=== PATIENT | female | born 1940 | race Caucasian/White ===

== ENCOUNTER 2023-12-24 09:27 | Emergency (ER) | payer OTHER, SELFPAY ==
[2023-12-24] VITALS (24 sets, daily range): BP systolic 124–149; BP diastolic 66–88; PULSE 72–93; RESP 15–24; TEMP 36.8–37.2; O2SAT 95–97
--- NOTE | 2023-12-24 09:15 | RT.EKG_ITS ---
APPROVED REPORT Exam: Resting ECG Reason for Exam: Fall Patient Location: E HR:87 bpm ECG Measurements Heart Rate 87 AXIS VT 114 P -27 QRSd 84 QRS -2 QT 366 T 44 QTc 441 Conclusion Sinus rhythm...normal P axis, V-rate 60- 99 sinus rhythm, normal axis, normal interavls, non ischemic
--- NOTE | 2023-12-24 09:30 | DI.RAD_ITS ---
Exam(s) XR SHOULDER RT COMPLETE 2+V EXAM: XR SHOULDER RT COMPLETE 2+V CLINICAL HISTORY: Fall. TECHNIQUE: 2D digital imaging was performed of the right shoulder. Four images were obtained. AP, Grashey and Y views were obtained. COMPARISON: No exams were available for comparison FINDINGS: BONES: No acute fracture is present. No bony destructive lesion is seen. JOINTS: No dislocation present. Mild degenerative changes are seen at the acromioclavicular joint. T he glenohumeral joint is well maintained. SOFT TISSUE: Normal. IMPRESSION: No acute fracture or dislocation. DATA REPOSITORY: RADIATION DOSE DELIVERED:
--- NOTE | 2023-12-24 09:30 | DI.RAD_ITS ---
Exam(s) XR HAND RT COMPLETE EXAM: XR HAND RT COMPLETE CLINICAL HISTORY: Fall. TECHNIQUE: 2D digital imaging was performed of the right hand. Three images were obtained. AP, late ral and oblique views were obtained. COMPARISON: No exams were available for comparison FINDINGS: BONES: No acute fracture is present. No bony destructive lesion is seen. Postsurgical changes are see n in the lunate. JOINTS: No dislocation present. Degenerative changes are seen in the hand and wrist. The findings ar e most marked at the 1st CMC joint. SOFT TISSUE: Normal. IMPRESSION: No acute fracture or dislocation. DATA REPOSITORY: RADIATION DOSE DELIVERED:
--- NOTE | 2023-12-24 09:41 | ED.GENADUL_ITS ---
Discharge Plan Disposition Patient Disposition: Home Condition: Stable Discharge Details Clinical Impression: Fall, Laceration of head, complicated, Fracture of nasal bone, Diverticulitis Primary Care Provider: Shawnee Santos ED Provider: Bertha Tinajero Home Meds and New Rx's Prescriptions: New amoxicillin-pot clavulanate 875-125 mg tablet 1 tab PO BID 10 Days Qty: 20 0RF Continued acetaminophen [8 Hour Pain Reliever] 650 mg tablet extended release 650 mg PO Q8H PRN Artificial Tears(glycerin-peg) 1-0.3 % drops 1 drp ophthalmic (eye) QID PRN buspirone 10 mg tablet 10 mg PO BID docusate sodium [Colace] 100 mg capsule 100 mg PO BID bisacodyl [Gentle Laxative (bisacodyl)] 10 mg suppository 10 mg SC DAILY PRN escitalopram oxalate 10 mg tablet 10 mg PO DAILY melatonin 3 mg capsule 6 mg PO HS magnesium hydroxide [Dulcolax (magnesium hydroxide)] 400 mg/5 mL suspension 2,400 mg PO DAILY PRN polyethylene glycol 3350 [ClearLax] 17 gram powder in packet 17 g PO DAILY PRN olanzapine 15 mg tablet,disintegrating 7.5 mg PO HS olanzapine 10 mg tablet,disintegrating 10 mg PO DAILY Discharge Instructions Instructions: Diverticulitis, Laceration Repair With Stitches ED, Nose Fracture ED, Preventing Falls ED Additional Instructions: At this time no broken bones other than nasal fractures. You have a laceration which was repaired with 8 sutures in an internal suture which will dissolve on its own. Have the sutures removed in 7 days. You are given Augmentin for to prevent from a sinus infection due to the nasal fracture and diverticulitis which they saw on the CT. The Steri-Strips will start to fall off in approximately 4 to 6 days on her own. Do not blow your nose or put anything into your nose. Watch for signs of infection including increased redness, red streaks swelling drainage or fever. Please take Tylenol with food every 4-6 hours as needed for pain and swelling. You will be sore over the next 2 to 3 days. Return to the ER for any worsening headache not relieved by Tylenol ibuprofen, worsening confusion, vomiting, weakness on one side of your body, signs of i nfection or concerns. Thank you for allowing us to care for you today. Follow up with primary care provider/ENT in 3-5 days. Return to ED sooner if any worsening or concerns. Referrals: Shawnee Santos [Primary Care Provider] - 3 days Jenaro Renteria MD [ [facility] STAFF PHYSICIAN] - 1 week (nasal fracture) HPI General Mode of arrival: EMS . Date/Time Provider Initiated Documentation: 12/24/23 09:33 . Limitations to Documentation: altered mental status . Information obtained by: patient, EMS, RN notes reviewed and old records reviewed . HPI Narrative: 83-year-old female presents to the ER via EMS after he witnessed fall at [facility] and rehab, patient was found facedown when EMS arrived on scene. She does have a large avulsion to left forehead, and laceration to the bridge of her nose. Patient has a past medical history of Alzheimer's dementia, she is also complaining of right shoulder and right hand pain. She is in a c- collar upon arrival. Bleeding is controlled with dressing. Related Data Home Medications ?Medication ?Instructions ?Recorded ?Confirmed acetaminophen 650 mg 650 mg PO Q8H PRN 12/24/23 12/24/23 tablet,extended release (8 Hour Pain Reliever) amoxicillin 875 mg-potassium 1 tab PO BID 10 days #20 tabs 12/24/23 clavulanate 125 mg tablet bisacodyl 10 mg rectal suppository 10 mg SC DAILY PRN 12/24/23 12/24/23 (Gentle Laxative (bisacodyl)) buspirone 10 mg tablet 10 mg PO BID 12/24/23 12/24/23 docusate sodium 100 mg capsule 100 mg PO BID 12/24/23 12/24/23 (Colace) escitalopram oxalate 10 mg tablet 10 mg PO DAILY 12/24/23 12/24/23 magnesium hydroxide 400 mg/5 mL 2,400 mg PO DAILY PRN 12/24/23 12/24/23 oral suspension (Dulcolax (magnesium hydroxide)) melatonin 3 mg capsule 6 mg PO HS 12/24/23 12/24/23 olanzapine 10 mg disintegrating 10 mg PO DAILY 12/24/23 12/24/23 tablet olanzapine 15 mg disintegrating 7.5 mg PO HS 12/24/23 12/24/23 tablet polyethylene glycol 3350 17 gram 17 g PO DAILY PRN 12/24/23 12/24/23 oral powder packet (ClearLax) propylene glycol 1 %-glycerin 0.3 1 drp ophthalmic (eye) QID PRN 12/24/23 12/24/23 % eye drops (Artificial Tears (glycerin-peg)) Previous Rx's ?Medication ?Instructions ?Recorded amoxicillin 875 mg-potassium 1 tab PO BID 10 days #20 tabs 12/24/23 clavulanate 125 mg tablet Allergies Allergy/AdvReac Type Severity Reaction Status Date / Time No Known Allergies Allergy Unverified 12/24/23 09:32 General Stated Complaint: Fall/Non TraumaCriteria EULALIA: 3 Review of Systems All systems reviewed & are unremarkable except as noted in HPI and below Integumentary/Breasts Skin/Breast: Reports as per HPI and Reports wounds Exam Narrative Exam Narrative: General: Well Developed, Awake and at baseline conversant. Skin: Warm and Dry HEENT: Head: Large avulsion noted to her left frontal scalp, laceration noted to the bridge of her nose. Eyes: Pupils PERRLA, EOM's intact. No periorbital eccymosis or step off Ears: Canal patent. Tympanic membranes are clear . No crandall's sign, no hemptympanum. Nose/Face: Laceration across the bridge of nose, swelling, contusion noted to the upper lip. Facial bones nontender to palpation and stable with manipulation. Mouth/Throat: No intraoral trauma. Teeth and mandible are intact. Neck: no step off, no deformity to palpation of C-spine. Trachea midline. Patient presents in a c-collar. Chest: No surface trauma. Nontender without crepitus or deformity. Lungs clear to ausculatation bilaterally. Heart: RRR, no rubs, murmurs or gallop. Abdomen: No abrasions, ecchymosis, or surface trauma. Nondistended. Nontender to palpation no guarding, rebound, or rigidity. Pelvis: Nontender to palpation and stable to compression. Femoral pulses strong and equal Extremities: no surface trauma. Sensation intact. Peripheral pulses intact and equal. Neuro: Motor and sensory exam nonfocal. Reflexes are symmetric. Course Vital Signs Vital signs: Vital Signs Temperature 36.8 C 12/24/23 09:28 Pulse 90 12/24/23 09:28 Respiratory Rate 16 12/24/23 09:28 Pulse Oximetry 97 12/24/23 09:28 Temperature 36.8 C 12/24/23 09:28 Pulse 90 12/24/23 09:28 Respiratory Rate 16 12/24/23 09:28 Blood Pressure 145/87 H 12/24/23 09:36 Pulse Oximetry 97 12/24/23 09:28 Oxygen Delivery Method Room Air 12/24/23 09:28 Oxygen Flow Rate 0 12/24/23 09:28 Comment unable to get BP at this time due to pain/resistance 12/24/23 09:28 Procedures Laceration Laceration 1: Site: scalp Side (If applicable): left Size (cm): 7 Description: flap and irregular Depth: involves muscle layer Local anesthetic: Lidocaine 1%, with Epi and LET(lidocaine epinephrine tetracaine) Amount of anesthesia used (mL): 5 Pre-repair: wound explored and irrigated extensively Skin layer closed with: nylon and vicryl (1 tied vessel off) Size (cm): 4-0 Number of sutures: 8 Technique: simple, interrupted Subcutaneous layer closed with: vicryl (Vessel tied off) Medical Decision Making 83-year-old female presents to the ER via EMS after he witnessed fall at [facility] and rehab, patient was found facedown when EMS arrived on scene. She does have a large avulsion to left forehead, and laceration to the bridge of her nose. Patient has a past medical history of Alzheimer's dementia, she is also complaining of right shoulder and right hand pain. She is in a c- collar upon arrival. Bleeding is controlled with dressing. Differential diagnose includes not limited to CVA, intracranial hemorrhage, C- spine fracture, internal bleeding or other traumatic injury. CT head C-spine facial without contrast ordered, lab work. Topical lidocaine epinephrine tetracaine, No evidence of acute fracture noted to patient's right shoulder or right hand. She does have some degenerative changes and internal fixation device on her lunate on her hand. CT chest abdomen pelvis shows evidence of acute diverticulitis and a 2.2 cm masslike opacity in the rectosigmoid which may represent malignancy versus inflamed diverticulum. Will relay this to the health and rehab, no lab evidence of infectious etiology, patient has no complaints of abdominal pain. CT head C-spine within normal limits no acute fracture. C-collar removed. Laceration anesthetized with 2% lidocaine with epi patient tolerated well. Anesthesia achieved. Cleaned with chlorhexidine scrub. And saline irrigation. Laceration repair to the left frontal scalp with 4.0 Ethilon sutures #8, there was a bleeding vessel which was tied off with Vicryl internally. Bleeding controlled. Laceration to the bridge of nose was closed with tissue adhesive and 4 Steri- Strips. Bleeding controlled at this time. Will have sutures removed in 7 days return to health and rehab via EMS. Given Augmentin to cover for prevention for sinus infection open nasal fracture and diverticulitis. This text was generated using [employer] system, please disregard any oddities of phrase or misspellings. Medical Records Medical records reviewed: Yes I reviewed the patient's medical records. Imaging Data Radiologic Study: Imaging: X-Ray Radiologist's impression: TECHNIQUE: Imaging protocol: Radiologic exam of the right hand. Views: 3 or more views. COMPARISON: No relevant prior studies available. FINDINGS: Bones/joints: Joint space narrowing in the DIP joints and PIP joints of the fingers consistent with degenerative changes. Degenerative changes in the thumb carpometacarpal joint and between the scaphoid and trapezium and in the radiocarpal joint. Internal fixation device in the lunate. Degenerative changes in the carpal bones. There is no evidence of acute fracture.There is no evidence of malalignment or dislocation. Soft tissues: Normal. IMPRESSION: There is no evidence of acute fracture.There is no evidence of malalignment or dislocation. Thank you for allowing us to participate in the care of your patient. Dictated and Authenticated by: Aziza Hardwick MD Lab Data Lab results reviewed: Yes I reviewed the patient's lab results. Labs: Laboratory Tests Range/Units 12/24/23 09:40 WBC (4.4-10.8) 10^3/uL 10.67 RBC (3.93-5.22) 10^6/uL 4.91 Hgb (11.2-15.7) g/dL 14.5 Hct (36.0-46.0) % 44.9 MCV (80-95) fL 91 MCH (27.0-33.0) pg 29.5 MCHC (32.0-36.0) % 32.3 RDW (11.7-14.6) % 13.4 Plt Count (130-400) 10^3/uL 272 MPV (8.0-11.0) fL 9.9 Immature Gran % % 0.5 Neutrophils % % 58.4 Lymphocytes % % 24.4 Monocytes % % 14.1 Eosinophils % % 1.9 Basophils % % 0.7 Nucleated RBC % (0.0-0.3) % 0.0 Absolute Neutrophils (1.2-6.7) 10^3/uL 6.25 Absolute Lymphocytes (1.2-3.4) 10^3/uL 2.60 Absolute Monocytes (0.1-0.8) 10^3/uL 1.50 H Absolute Eosinophils (0.0-0.7) 10^3/uL 0.20 Absolute Basophils (0.0-0.2) 10^3/uL 0.07 PT (9.1-11.1) sec 10.9 INR (0.9-1.1) 1.1 Sodium (136-145) mmol/L 143 Potassium (3.5-5.1) mmol/L 3.9 Chloride (98-107) mmol/L 105 Carbon Dioxide (21.0-32.0) mmol/L 26.7 Anion Gap (3-11) mmol/L 11.3 H BUN (7-18) mg/dL 19 H Creatinine (0.55-1.02) mg/dL 1.1 H Est GFR (CKD-EPI 2020) (mL/min/1.73m2) 50.48 Glucose (74-106) mg/dL 119 H Calcium (8.5-10.1) mg/dL 9.6 Magnesium (1.8-2.4) mg/dL 2.2 Total Bilirubin (0.2-1.0) mg/dL 0.62 AST (15-37) U/L 13 L ALT (14-59) U/L 14 Alkaline Phosphatase (46-116) U/L 145 H Troponin I High Sens (4-51) ng/L 4 Total Protein (6.4-8.2) g/dL 7.7 Albumin (3.4-5.0) g/dL 3.3 L Quality:SDOH Health Related Social Needs: No Data to Display PFSH All Active Problems (Updated 12/24/23 @ 13:07 by Bertha Tinajero NP) Diverticulitis (Chronic) Fracture of nasal bone (Acute) Laceration of head, complicated (Acute) Fall (Acute) Social History Smoking/Tobacco Use Status: Never Smoking risk assessment performed?: Yes Alcohol Intake: never Substance use type: does not use Housing: [facility]
[2023-12-24 09:50] LABS: Abs Immature Grans 0.05 10^3/uL (0.0-0.06); Absolute Basophil Count 0.07 10^3/uL (0.0-0.2); Absolute Neutrophil Count 6.25 10^3/uL (1.2-6.7); Basophils % 0.7 %; Eosinophils % 1.9 %; HCT 44.9 % (36.0-46.0); HGB 14.5 g/dL (11.2-15.7); Immature Grans % 0.5 %; Lymphocytes % 24.4 %; MCH 29.5 pg (27.0-33.0); MCHC 32.3 % (32.0-36.0); MCV 91 fL (80-95); MPV 9.9 fL (8.0-11.0); Monocytes % 14.1 %; Neutrophils % 58.4 %; Platelet Count 272 10^3/uL (130-400); RBC 4.91 10^6/uL (3.93-5.22); RDW 13.4 % (11.7-14.6); RDW-SD 45.5 fL; WBC 10.67 10^3/uL (4.4-10.8)
[2023-12-24] MEDS: Lidocaine/Epinephri/Tetracaine Topical Gel 3 ML TP (09:53)
[2023-12-24 09:59] LABS: INR 1.1 (0.9-1.1); Prothrombin Time 10.9 sec (9.1-11.1)
[2023-12-24 10:07] LABS: ALT 14 U/L (14-59); AST 13 U/L (15-37); Albumin 3.3 g/dL (3.4-5.0); Alkaline Phosphatase 145 U/L (46-116); Anion Gap 11.3 mmol/L (3-11); BUN 19 mg/dL (7-18); Bilirubin, Total 0.62 mg/dL (0.2-1.0); CO2 26.7 mmol/L (21.0-32.0); CREATININE 1.1 mg/dL (0.55-1.02); Calcium 9.6 mg/dL (8.5-10.1); Chloride 105 mmol/L (98-107); Estimated GFR 50.48 (mL/min/1.73m2); Glucose 119 mg/dL (74-106); Magnesium 2.2 mg/dL (1.8-2.4); Potassium 3.9 mmol/L (3.5-5.1); Sodium 143 mmol/L (136-145); Total Protein 7.7 g/dL (6.4-8.2); Troponin I 4 ng/L (4-51)
[2023-12-24] MEDS: Omnipaque 350 MG/ML 100 ML BTL IJ (10:36)
[2023-12-24] MEDS: Normal Saline - Diluent 50 ML VIAL IJ (10:36)
--- NOTE | 2023-12-24 11:23 | DI.CT_ITS ---
Exam(s) CT HEAD CERV SPINE FACIAL WO EXAM: CT HEAD CERV SPINE FACIAL WO CLINICAL HISTORY: Fall. TECHNIQUE: Imaging Protocol: Axial computed tomography images with coronal and sagittal reformatted images were created and reviewed COMPARISON: No exams were available for comparison FINDINGS: CT Head: Ventricles and Extra axial spaces: Normal in size and morphology for the patient's age. Hemorrhage: None. Cerebral parenchyma: Areas of decreased attenuation in the white matter consistent with chronic micro vascular ischemic disease. Midline shift: None. Brainstem/Cerebellum: Normal. Calvarium: Normal. Visualized Paranasal sinuses/Mastoids: No fluid levels are seen. Soft Tissues: There is a laceration in the left supraorbital soft tissues. CT Face: Facial Bones: Minimally displaced nasal bone fractures. Sinuses and Mastoids: No fluid levels are seen. Globes, extraocular muscles, optic nerves and retrobulbar fat: Normal. Upper aerodigestive tract: Normal. Mandible and bilateral temporomandibular joints: Normal. Soft tissues: There is a 1.2 cm skin lesion lateral to the right orbit (series 13 image 132). It ksenia ears superficial. The underlying musculature is unremarkable. No underlying osseous lesion is seen. CT Cervical Spine: Bones: No acute fracture or subluxation. Age-appropriate degenerative changes are present. There is mild straightening of the normal cervical lordosis. Soft Tissues: Unremarkable. Lung Apices: Clear. IMPRESSION: 1. No acute intracranial process. 2. No acute fracture or subluxation in the cervical spine. 3. Mildly displaced comminuted nasal bone fractures. 4. 1.2 cm skin lesion on the right as described above (series 13, image 132). Please correlate with physical exam and follow-up accordingly. RADIATION DOSE DELIVERED: !Error Total DLP DATA REPOSITORY: All CT scans at this facility are submitted to the National Radiology Data Registry (NRDR) Dose Index Registry (DIR) with the [employer] (A[employer]). RADIATION OPTIMIZATION: All CT scans at this facility use at least one of these dose optimization te chniques: automated exposure control; mA and/or kV adjustment per patient size (includes targeted exa ms where dose is matched to clinical indication); or iterative reconstruction.
--- NOTE | 2023-12-24 11:23 | DI.CT_ITS ---
Exam(s) CT CHEST/ABD/PEL W CT THORACIC LUMBAR SPINE REC EXAM: CT CHEST/ABD/PEL W and CT thoracic and lumbar spine recons CLINICAL HISTORY: Fall TECHNIQUE: Imaging Protocol: Axial computed tomography images with coronal and sagittal reformatted images were created and reviewed CONTRAST MATERIAL: Intravenous: Omnipaque 350 contrast volume:100 mL Oral: No COMPARISON: CT CT THORACIC LUMBAR SPINE REC from 12/24/2023 FINDINGS: The examination is limited due to patient motion artifact. CHEST: Tracheobronchial tree: Patent where visualized. Pulmonary parenchyma: Atelectatic changes are seen in the lung bases. [id number]-[id number] emphysematous changes are present in the lungs. Visualized thyroid gland: Unremarkable. Mediastinum and Ailyn: No dominant adenopathy or fluid collection. The esophagus is unremarkable. Pleura: No effusion or pneumothorax. Heart: Mild cardiomegaly. Coronary artery calcifications are present. No pericardial effusion. Pulmonary arteries: Due to the timing of the bolus, the pulmonary arteries are suboptimally opacified for evaluation of pulmonary emboli. No large central pulmonary embolus is present. Aorta: Thoracic aorta non-dilated. Atherosclerotic calcification is present. There is no evidence of dissection. Lymph nodes: Within normal limits. Soft tissues: Unremarkable. Bones:Within normal limits for the patient's age. CT recons of the thoracic spine: Age-appropriate degenerative changes are present. There is a right convex scoliosis of the thoracic spine. There are no acute fractures or subluxations. ABDOMEN: Liver: Normal density. No measurable mass. Portal, Superior Mesenteric, and Splenic Veins: Unremarkable. Gallbladder and Biliary Tract: The patient is status post cholecystectomy. No significant biliary du ctal dilatation is present. Pancreas: Normal density, no abnormal calcifications or inflammatory process. Spleen: Normal. Adrenals: There are bilateral hypodense adrenal nodules. The right adrenal nodule measures 1.1 cm. The left adrenal nodule also measures 1.1 cm. Kidneys: Normal size, contour and axis. No radiodense stones or obstructive uropathy. There is a simp le left renal cyst. No follow-up is recommended. Abdominal Aorta: Abdominal portion non-dilated. Atherosclerotic calcification is present. No evidenc e of dissection. Bowel: There is diverticulosis of the colon. There is focal bowel wall thickening seen in the centra l sigmoid colon (series 6, image 99). Mild stranding around the sigmoid colon. While acute divertic ulitis should be considered, as sigmoid mass cannot be excluded. There is no evidence of bowel obstr uction. No other wall thickening is seen. There is no evidence of appendicitis. The stomach is inc ompletely distended limiting evaluation. Peritoneal Cavity: No ascites, collection or mesenteric inflammatory response. No free air. Lymph Nodes: Within normal limits. Bones: Within normal limits for the patient's age. Soft Tissues: Unremarkable. CT lumbar spine recons: Age-appropriate degenerative changes are present. No acute fracture or sublu xation is present. PELVIS: Bladder: Symmetric distention, no gross wall thickening. Reproductive Organs: The uterus is absent. Lymph Nodes: Within normal limits. Bones: Within normal limits. IMPRESSION: 1. No acute pulmonary process. 2. No acute fracture or subluxation is seen in the thoracic or lumbar spine. 3. No acute abdominal or pelvic organ injury. 4. There is diverticulosis seen in the colon. In the mid sigmoid colon there is focal bowel wall thi ckening. Mild stranding is seen in the soft tissues. This may represent an acute diverticulitis, th ere is a masslike quality of this area in the mid sigmoid colon and a neoplasm should be considered. Follow-up with barium enema and/or colonoscopy is recommended. Unexpected findings RADIATION DOSE DELIVERED: 720.55mGy.cm Total DLP DATA REPOSITORY: All CT scans at this facility are submitted to the National Radiology Data Registry (NRDR) Dose Index Registry (DIR) with the [employer] (ACR). RADIATION OPTIMIZATION: All CT scans at this facility use at least one of these dose optimization te chniques: automated exposure control; mA and/or kV adjustment per patient size (includes targeted exa ms where dose is matched to clinical indication); or iterative reconstruction.
--- NOTE | 2023-12-24 11:34 | DI.VRAD_ITS ---
PROCEDURE INFORMATION: Exam: XR Right Hand Exam date and time: 12/24/2023 11:02 AM Age: 83 years old Clinical indication: Other: Fall TECHNIQUE: Imaging protocol: Radiologic exam of the right hand. Views: 3 or more views. COMPARISON: No relevant prior studies available. FINDINGS: Bones/joints: Joint space narrowing in the DIP joints and PIP joints of the fingers consistent with degenerative changes. Degenerative changes in the thumb carpometacarpal joint and between the scaphoid and trapezium and in the radiocarpal joint. Internal fixation device in the lunate. Degenerative changes in the carpal bones. There is no evidence of acute fracture.There is no evidence of malalignment or dislocation. Soft tissues: Normal. IMPRESSION: There is no evidence of acute fracture.There is no evidence of malalignment or dislocation. Dictated and Authenticated by: Aziza Hardwick MD. Ordering:CHRISTIAN Stone MD
--- NOTE | 2023-12-24 11:35 | DI.VRAD_ITS ---
PROCEDURE INFORMATION: Exam: XR Right Shoulder Exam date and time: 12/24/2023 11:08 AM Age: 83 years old Clinical indication: Other: Fall TECHNIQUE: Imaging protocol: Radiologic exam of the right shoulder. Views: 2 or more views. COMPARISON: CT CHEST/ABD/PEL W 12/24/2023 10:49 AM FINDINGS: Bones/joints: Degenerative changes in the acromioclavicular joint and glenohumeral joint. There is no evidence of acute fracture.There is no evidence of malalignment or dislocation. Soft tissues: Normal. IMPRESSION: There is no evidence of acute fracture.There is no evidence of malalignment or dislocation. Dictated and Authenticated by: Aziza Hardwick MD. Ordering:CHRISTIAN Stone MD
--- NOTE | 2023-12-24 11:47 | DI.VRAD_ITS ---
Addendum created by Aziza Hardwick MD on 12/24/2023 11:57:17 AM EDT: THIS REPORT CONTAINS FINDINGS THAT MAY BE CRITICAL TO PATIENT CARE. The findings were verbally communicated via telephone conference with BRITTANIE RITCHIE at 11:56 AM EDT on 12/24/2023. The findings were acknowledged and understood. Initial report created on 12/24/2023 11:46:31 AM EDT: PROCEDURE INFORMATION: Exam: CT Chest With Contrast; Diagnostic Exam date and time: 12/24/2023 10:49 AM Age: 83 years old Clinical indication: Other: Fall TECHNIQUE: Imaging protocol: Diagnostic computed tomography of the chest with contrast. 3D rendering (Not supervised by radiologist): MIP and/or 3D reconstructed images were created by the technologist. Contrast material: OMNIPAQUE 350; Contrast volume: 100 ml; Contrast route: INTRAVENOUS (IV); COMPARISON: CT THORACIC LUMBAR SPINE REC 12/24/2023 10:49 AM FINDINGS: Lungs: Mild panlobular emphysematous changes. Atelectasis in the lingula and both lower lobes Pleural spaces: Unremarkable. No pneumothorax. No pleural effusion. Heart: There is calcification of the aortic valve annulus. There is calcification of the mitral valve annulus. Coronary arteries: Coronary artery calcifications may indicate coronary artery disease. Lymph nodes: Unremarkable. No enlarged lymph nodes. Vasculature: Unremarkable. No aortic aneurysm. Bones/joints: Unremarkable. No acute fracture. Soft tissues: Unremarkable. IMPRESSION: No acute process PROCEDURE INFORMATION: Exam: CT Abdomen And Pelvis With Contrast Exam date and time: 12/24/2023 10:49 AM Age: 83 years old Clinical indication: Other: Fall TECHNIQUE: Imaging protocol: Computed tomography of the abdomen and pelvis with contrast. 3D rendering (Not supervised by radiologist): MIP and/or 3D reconstructed images were created by the technologist. Contrast material: OMNIPAQUE 350; Contrast volume: 100 ml; Contrast route: INTRAVENOUS (IV); COMPARISON: CT THORACIC LUMBAR SPINE REC 12/24/2023 10:49 AM FINDINGS: Liver: Normal. No mass. Gallbladder and biliary ducts: Cholecystectomy. Intrahepatic ductal dilatation.The common duct is prominent. It measures 9 5. millimeters. This may be due to post cholecystectomy state and elderly status. However, if biliary obstruction is suspected clinically, recommend further evaluation Pancreas: Normal. No ductal dilation. Spleen: Normal. No splenomegaly. Adrenal glands: 16 x 16 mm left adrenal nodule Kidneys and ureters: Normal. No hydronephrosis. Stomach and bowel: Diverticulosis and Bowel wall thickening along the rectosigmoid colon. Moderate pericolonic inflammatory changes. No evidence of perforation or abscess formation or bleeding. Findings consistent with acute diverticulitis. 2.7 x 2.2 cm masslike opacity at the rectosigmoid may represent malignancy versus inflamed diverticulum As an underlying malignancy cannot be entirely excluded, a follow-up examination after a course of treatment is recommended if clinically warranted. Appendix: No evidence of appendicitis. Intraperitoneal space: Unremarkable. No free air. No significant fluid collection. Vasculature: Unremarkable. No abdominal aortic aneurysm. Lymph nodes: Unremarkable. No enlarged lymph nodes. Urinary bladder: Unremarkable as visualized. Reproductive: Surgical resection of the uterus Bones/joints: Unremarkable. No acute fracture. Soft tissues: Unremarkable. IMPRESSION: 1. Diverticulosis and Bowel wall thickening along the rectosigmoid colon. Moderate pericolonic inflammatory changes. No evidence of perforation or abscess formation or bleeding. Findings consistent with acute diverticulitis. 2. 2.7 x 2.2 cm masslike opacity at the rectosigmoid may represent malignancy versus inflamed diverticulum As an underlying malignancy cannot be entirely excluded, a follow-up examination after a course of treatment is recommended if clinically warranted. Dictated and Authenticated by: Aziza Hardwick MD. Ordering:CHRISTIAN Stone MD
--- NOTE | 2023-12-24 11:52 | DI.VRAD_ITS ---
PROCEDURE INFORMATION: Exam: CT Thoracic Spine Without Contrast Exam date and time: 12/24/2023 10:49 AM Age: 83 years old Clinical indication: Other: Fall TECHNIQUE: Imaging protocol: Computed tomography of the thoracic spine without contrast. COMPARISON: CT CHEST/ABD/PEL W 12/24/2023 10:49 AM FINDINGS: Bones/joints: There is no evidence of acute fracture.There is no evidence of malalignment or dislocation. Mild dextroscoliosis of the thoracic spine . Mild degenerative changes along the thoracic spine Soft tissues: Unremarkable. Lungs: Paraseptal emphysematous changes IMPRESSION: There is no evidence of acute fracture.There is no evidence of malalignment or dislocation. PROCEDURE INFORMATION: Exam: CT Lumbar Spine Without Contrast Exam date and time: 12/24/2023 10:49 AM Age: 83 years old Clinical indication: Other: Fall TECHNIQUE: Imaging protocol: Computed tomography of the lumbar spine without contrast. COMPARISON: CT CHEST/ABD/PEL W 12/24/2023 10:49 AM FINDINGS: Bones/joints: There is no evidence of acute fracture.There is no evidence of malalignment or dislocation. Broad-based disc bulge, facet hypertrophy, and ligament hypertrophy at L3/L4 and L4/L5 consistent with spinal stenosis. . Broad-based disc bulge at L5/S1 consistent with degenerative disc disease . Kidneys and ureters: 4.5 cm simple cyst left kidney. . No follow-up imaging recommended . Soft tissues: Unremarkable. IMPRESSION: 1. There is no evidence of acute fracture.There is no evidence of malalignment or dislocation. 2. Broad-based disc bulge, facet hypertrophy, and ligament hypertrophy at L3/L4 and L4/L5 consistent with spinal stenosis. . 3. Broad-based disc bulge at L5/S1 consistent with degenerative disc disease . Dictated and Authenticated by: Aziza Hradwick MD. Ordering:CHRISTIAN Stone MD
[2023-12-24 12:02] LABS: Troponin I 5 ng/L (4-51)
--- NOTE | 2023-12-24 12:16 | DI.VRAD_ITS ---
PROCEDURE INFORMATION: Exam: CT Head Without Contrast Exam date and time: 12/24/2023 10:42 AM Age: 83 years old Clinical indication: Other: Fall TECHNIQUE: Imaging protocol: Computed tomography of the head without contrast. COMPARISON: No relevant prior studies available. FINDINGS: Brain: There is no acute intracranial hemorrhage. There is lucency in the cerebral white matter, likely microvascular disease although non-specific. No evidence of mass. There is no mass effect or midline shift. Hernandez white differentiation is intact. There are no extra-axial fluid collections. Cerebral ventricles: The ventricles and sulci are enlarged, consistent with volume loss / atrophy. No hydrocephalus. Paranasal sinuses: Paranasal sinuses mild mucosal thickening. Mastoid air cells: No significant mastoid effusion. Bones: No acute skull fracture. Comminuted nasal bone fractures. Soft tissues: Unremarkable as visualized. Vasculature: There is vascular calcification. IMPRESSION: 1. No evidence of acute intracranial abnormality. No evidence of acute infarction, hemorrhage, or mass. 2. Atrophy and microvascular disease. PROCEDURE INFORMATION: Exam: CT Maxillofacial Without Contrast Exam date and time: 12/24/2023 10:42 AM Age: 83 years old Clinical indication: Other: Fall TECHNIQUE: Imaging protocol: Computed tomography of the face without contrast. COMPARISON: No relevant prior studies available. FINDINGS: Orbital cavities: Orbits are normal. Globes are unremarkable. Paranasal sinuses: Mild scattered mucosal thickening in paranasal sinuses. 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 Bones: Comminuted nasal bone fractures bilaterally, mildly displaced in midline and right. Soft tissues: There is left frontal scalp soft tissue swelling with prominent laceration. Other findings: There is sessile lesion in right temporal region measuring approximately 1.4 cm in length and 0.5 cm depth correlate with clinical appearance to determine if this is a concerning lesion. IMPRESSION: 1. Nasal bone fractures. 2. Right temporal sessile lesion and correlate with direct visualization to determine significance. PROCEDURE INFORMATION: Exam: CT Cervical Spine Without Contrast Exam date and time: 12/24/2023 10:42 AM Age: 83 years old Clinical indication: Other: Fall TECHNIQUE: Imaging protocol: Computed tomography of the cervical spine without contrast. COMPARISON: No relevant prior studies available. FINDINGS: Bones: No acute fracture. Degenerative changes with severe neural foraminal narrowing C3-C4 through C6-C7. Spinal stenosis is present but difficult to quantitate with CT. Straightening of lordosis may be positional or related to muscular spasm. Correlate clinically. Lungs: Lung apices are unremarkable for acute finding. Soft tissues: See Bones finding. IMPRESSION: No acute fracture. Dictated and Authenticated by: Daniela Vee MD. Ordering:CHRISTIAN Stone MD
[2023-12-24] MEDS: Acetaminophen 325 MG TAB 650 MG PO (13:44)
[2023-12-24] MEDS: Amoxicillin 875/Clav. 125 TAB PO (13:51)
== END 2023-12-24 13:45 | disposition home or self-care (01) ==
PROVIDERS: Emergency Provider Registered Nurse Emergency; PCP Family Medicine
DX: S01.81XA Laceration without foreign body of other part of head, initial encounter (principal); S01.21XA Laceration without foreign body of nose, initial encounter; S02.2XXA Fracture of nasal bones, initial encounter for closed fracture; S00.531A Contusion of lip, initial encounter; K57.32 Diverticulitis of large intestine without perforation or abscess without bleeding; G30.9 Alzheimer's disease, unspecified; F02.80 Dementia in other diseases classified elsewhere, unspecified severity, without behavioral disturbance, psychotic disturbance, mood disturbance, and anxiety; W18.30XA Fall on same level, unspecified, initial encounter; Y93.89 Activity, other specified; Y92.098 Other place in other non-institutional residence as the place of occurrence of the external cause
CPT/HCPCS: 12002; 36415; 74177; 80053; 93005; 99285; 70450; 70486; 71260; 72125; 73030; 73130; 83735; 84484; 85025; 85610; 93010; J3490

== ENCOUNTER 2023-12-27 14:36 | Emergency (ER) | payer OTHER, SELFPAY ==
[2023-12-27] VITALS (14 sets, daily range): BP systolic 121–148; BP diastolic 52–73; PULSE 78–89; RESP 14–24; TEMP 36.2–36.6; O2SAT 93–95
--- NOTE | 2023-12-27 14:30 | RT.EKG_ITS ---
APPROVED REPORT Exam: Resting ECG Reason for Exam: AMS Patient Location: E HR:86 bpm ECG Measurements Heart Rate 86 AXIS WV 135 P 25 QRSd 80 QRS -24 QT 365 T 55 QTc 436 Conclusion Sinus rhythm, rate 86 No interval abnormalities or ectopy No STEMI
--- NOTE | 2023-12-27 14:30 | DI.CT_ITS ---
Exam(s) CT HEAD WO EXAM: CT HEAD WO CLINICAL HISTORY: AMS. TECHNIQUE: Imaging Protocol: Axial computed tomography images with coronal and sagittal reformatted images were created and reviewed COMPARISON: CT CT HEAD CERV SPINE FACIAL WO from 12/24/2023 FINDINGS: Ventricles and Extra axial spaces: Normal in size and morphology for the patient's age. Hemorrhage: None. Cerebral parenchyma: There are areas of decreased attenuation in the white matter consistent with chr onic microvascular ischemic disease. No acute territorial infarct is seen. No mass effect is apprec iated. Midline shift: None. Brainstem/Cerebellum: Normal. Calvarium: Normal. There is an old nasal bone fracture deformity. Visualized Paranasal sinuses/Mastoids: Clear. Soft Tissues: Unremarkable. IMPRESSION: No acute intracranial process. RADIATION DOSE DELIVERED: 896.28mGy.cm Total DLP DATA REPOSITORY: All CT scans at this facility are submitted to the National Radiology Data Registry (NRDR) Dose Index Registry (DIR) with the [employer] ([employer]). RADIATION OPTIMIZATION: All CT scans at this facility use at least one of these dose optimization te chniques: automated exposure control; mA and/or kV adjustment per patient size (includes targeted exa ms where dose is matched to clinical indication); or iterative reconstruction.
--- NOTE | 2023-12-27 14:30 | DI.RAD_ITS ---
Exam(s) XR WRIST RT COMPLETE EXAM: XR WRIST RT COMPLETE CLINICAL HISTORY: Pain, fall several days ago. TECHNIQUE: 2D digital imaging was performed of the right wrist. Three views were obtained. PA, lat eral and oblique views were obtained. COMPARISON: CR,XR XR HAND RT COMPLETE from 12/24/2023 CR XR WRIST LT COMPLETE from 12/27/2023 FINDINGS: BONES: No evidence of an acute or healing fracture or dislocation. No bony destructive lesion is see n. Orthopedic anchors are seen in the lunate. JOINTS: There is chondrocalcinosis. Degenerative changes are seen in the wrist particularly at the 1 st CMC joint and the radiocarpal joint. SOFT TISSUE: Normal. IMPRESSION: No evidence of an acute or healing fracture or dislocation. DATA REPOSITORY: RADIATION DOSE DELIVERED:
--- NOTE | 2023-12-27 14:30 | DI.RAD_ITS ---
Exam(s) XR WRIST LT COMPLETE EXAM: XR WRIST LT COMPLETE CLINICAL HISTORY: Pain, swelling, warmth. TECHNIQUE: 2D digital imaging was performed of the left wrist. Three images were obtained. PA, obl ique and lateral views were obtained. COMPARISON: No exams were available for comparison FINDINGS: BONES: No acute fracture is present. No bony destructive lesion is seen. JOINTS: The carpal bones are normally aligned. There are marked degenerative changes seen at the 1st CMC joint. There is chondrocalcinosis seen at the distal ulna. SOFT TISSUE: There is soft tissue swelling of the hand. No soft tissue gas is seen. IMPRESSION: 1. No acute fracture or dislocation. 2. Diffuse soft tissue swelling of the hand. No soft tissue gas. 3. Marked degenerative changes seen at the 1st CMC joint. DATA REPOSITORY: RADIATION DOSE DELIVERED:
--- NOTE | 2023-12-27 14:37 | ED.GENADUL_ITS ---
Discharge Plan Disposition Patient Disposition: Home Condition: Stable Discharge Details Clinical Impression: Altered mental state, Laceration of head, complicated, Fracture of nasal bone, Bilateral wrist pain Primary Care Provider: Shawnee Santos ED Provider: Dorita Epps Home Meds and New Rx's Prescriptions: No Action acetaminophen [8 Hour Pain Reliever] 650 mg tablet extended release 650 mg PO Q8H PRN Artificial Tears(glycerin-peg) 1-0.3 % drops 1 drp ophthalmic (eye) QID PRN buspirone 10 mg tablet 10 mg PO BID docusate sodium [Colace] 100 mg capsule 100 mg PO BID bisacodyl [Gentle Laxative (bisacodyl)] 10 mg suppository 10 mg AL DAILY PRN escitalopram oxalate 10 mg tablet 10 mg PO DAILY melatonin 3 mg capsule 6 mg PO HS magnesium hydroxide [Dulcolax (magnesium hydroxide)] 400 mg/5 mL suspension 2,400 mg PO DAILY PRN polyethylene glycol 3350 [ClearLax] 17 gram powder in packet 17 g PO DAILY PRN olanzapine 15 mg tablet,disintegrating 7.5 mg PO HS olanzapine 10 mg tablet,disintegrating 10 mg PO DAILY amoxicillin-pot clavulanate 875-125 mg tablet 1 tab PO BID 10 Days Qty: 20 0RF Discharge Instructions Instructions: Muscle and Bone Pain (DC) Additional Instructions: You were seen in the emergency department today for evaluation of altered mental status. In our department you had a full physical examination performed, had laboratory studies that were reassuring, and had x-rays of your wrist that did not show any fractures. You have a CT scan of your brain that was normal, and your laceration seems to be healing well. We did place splints on your wrist, there is no sign of infection or any other abnormality that would require you to stay in the hospital or get surgery. Your urine had a small amount of blood but no signs of infection, and at this time it is safe for you to follow-up with your outpatient providers with any ongoing symptoms. Thank you for allowing us to be part of your care. HPI General Mode of arrival: EMS . Date/Time Provider Initiated Documentation: 12/27/23 14:37 . Limitations to Documentation: altered mental status . Information obtained by: patient, family, EMS and old records reviewed . HPI Narrative: HPI: This is an 83-year-old female patient with a past medical history significant for dementia, diverticulitis, and a recent visit to our emergency department after a ground-level fall complicated by nasal bone fracture and facial laceration. She is presenting for evaluation of altered mental status and bilateral wrist pain. History is obtained from EMS as the patient is confused at baseline, though they report that per family the patient seems more confused today. They noted that the patient was complaining of a headache, as well as pain in both of her wrists. They noted swelling, warmth, and redness over the left wrist. On review of the patient's medical records, I see that she was seen in our fa cility on Tuesday after a fall, had a CT scan of her brain (not on anticoagulation) and was noted to have a nasal bone fracture. The lacerations on her nose and above her left eye were sutured, and appear to be healing well. She had an x-ray of her right hand at that time that did not show any obvious injury. Exam: Gen: Awake and alert, follows simple commands, confused HEENT: Non-icteric sclera, pupils equal and reactive at 3 mm bilaterally. The patient has a semicircular laceration, secured with sutures, well-approximated and without surrounding redness, induration, or drainage above the left eyebrow. Similar laceration over the nasal bridge, secured with Steri-Strips, well- healing. Neck: Supple, no tenderness or limitation in range of motion, no meningismus Lungs: No apparent respiratory distress, normal respiratory effort. Lung sounds clear and equal bilaterally CV: Appears well perfused, strong distal pulses Abdomen: Non-distended, soft, nontender to palpation MSK: The patient's left wrist is swollen over the dorsal aspect with warmth and redness. The patient does have pain with passive range of motion, patient has pain with motion of the right wrist without associated swelling, warmth, or redness. No overlying skin changes appreciated. Skin: Visualized skin without rashes, cyanosis. Neuro: Gait deferred, symmetrical strength, no reported sensation deficits, spe ech slow, but answers simple questions appropriately.. Psych: Appropriate for situation. MDM: This is an 83-year-old female patient presenting for evaluation of altered mental status, headache, and wrist pain. My differential includes but is not limited to intracranial hemorrhage, postinjury concussive symptoms. No focal neurodeficits to significantly increase my concern for stroke, no reported seizure activity. Metabolic electrolyte derangements were considered, anemia, kidney injury, liver disease. The patient is without fever or obvious meningismus to significantly increase my concern for meningitis or encephalitis. I considered traumatic injury to the wrist including fracture, dislocation, sprain, strain, contusion. I also considered septic joint given the warmth and redness and pain with passive range of motion. Toxic exposure was considered, as well as infection such as UTI. Will obtain laboratory studies to include CBC, CMP, troponin, inflammatory markers, and urinalysis. Will obtain a CT scan of her brain to evaluate for any abnormalities, as well as x-ray imaging of her bilateral wrists. ED Course: I reviewed the patient's laboratory studies, which show no leuko cytosis, anemia or thrombocytopenia. Chemistry panel is without electrolyte derangements, evidence of kidney dysfunction or liver disease. The patient has a very modest elevation in her inflammatory markers with an ESR of 41 and a CRP of 6.4. Urinalysis with trace blood but no infectious findings, and in the absence of symptoms would hesitate to empirically treat. CT scan was independently interpreted by myself, showing no intracranial hemorrhage or other abnormalities to account for her altered mental status. Her bilateral wrist x-rays were without acute fracture, joint effusion, or other osseous abnormalities I did engage orthopedics who evaluated the patient's wrist at bedside, and they feel that her pain with range of motion is likely due to her pre-existing arthritis and have a low suspicion for septic joint. I did place the patient's risks and prefabricated splints bilaterally. She received Tylenol for management of pain. At this time, the patient has had a full medical evaluation and is safe for discharge to her care facility. They are hemodynamically stable, and tolerating PO. They are understanding of the follow-up plan and return precautions. They left our facility without incident. Dorita Epps MD Related Data Home Medications ?Medication ?Instructions ?Recorded ?Confirmed acetaminophen 650 mg 650 mg PO Q8H PRN 12/24/23 12/27/23 tablet,extended release (8 Hour Pain Reliever) amoxicillin 875 mg-potassium 1 tab PO BID 10 days #20 tabs 12/24/23 12/27/23 clavulanate 125 mg tablet bisacodyl 10 mg rectal suppository 10 mg AL DAILY PRN 12/24/23 12/27/23 (Gentle Laxative (bisacodyl)) buspirone 10 mg tablet 10 mg PO BID 12/24/23 12/27/23 docusate sodium 100 mg capsule 100 mg PO BID 12/24/23 12/27/23 (Colace) escitalopram oxalate 10 mg tablet 10 mg PO DAILY 12/24/23 12/27/23 magnesium hydroxide 400 mg/5 mL 2,400 mg PO DAILY PRN 12/24/23 12/27/23 oral suspension (Dulcolax (magnesium hydroxide)) melatonin 3 mg capsule 6 mg PO HS 12/24/23 12/27/23 olanzapine 10 mg disintegrating 10 mg PO DAILY 12/24/23 12/27/23 tablet olanzapine 15 mg disintegrating 7.5 mg PO HS 12/24/23 12/27/23 tablet polyethylene glycol 3350 17 gram 17 g PO DAILY PRN 12/24/23 12/27/23 oral powder packet (ClearLax) propylene glycol 1 %-glycerin 0.3 1 drp ophthalmic (eye) QID PRN 12/24/23 12/27/23 % eye drops (Artificial Tears (glycerin-peg)) Previous Rx's ?Medication ?Instructions ?Recorded amoxicillin 875 mg-potassium 1 tab PO BID 10 days #20 tabs 12/24/23 clavulanate 125 mg tablet Allergies Allergy/AdvReac Type Severity Reaction Status Date / Time No Known Allergies Allergy Unverified 12/24/23 09:32 General Stated Complaint: AMS/LOC EULALIA: 2 Course Vital Signs Vital signs: Vital Signs Temperature 36.2 C L 12/27/23 14:26 Pulse 89 12/27/23 14:26 Respiratory Rate 16 12/27/23 14:26 Blood Pressure 132/73 12/27/23 14:26 Pulse Oximetry 93 12/27/23 14:26 Temperature 36.2 C L 12/27/23 14:26 Temperature Source Tympanic 12/27/23 14:26 Pulse 89 12/27/23 14:26 Respiratory Rate 16 12/27/23 14:26 Blood Pressure 132/73 12/27/23 14:26 Pulse Oximetry 93 12/27/23 14:26 Oxygen Delivery Method Room Air 12/27/23 14:26 Oxygen Flow Rate 0 12/27/23 14:26 Medical Decision Making Quality:SDOH Health Related Social Needs: No Data to Display PFSH All Active Problems (Updated 12/27/23 @ 18:48 by Dorita Epps MD) Bilateral wrist pain (Acute) Altered mental state (Acute) Diverticulitis (Chronic) Fracture of nasal bone (Acute) Laceration of head, complicated (Acute) Fall (Acute) Social History Smoking/Tobacco Use Status: Never Smoking risk assessment performed?: Yes Alcohol Intake: never Substance use type: does not use Housing: [facility]
[2023-12-27 14:57] LABS: Abs Immature Grans 0.04 10^3/uL (0.0-0.06); Absolute Basophil Count 0.07 10^3/uL (0.0-0.2); Absolute Eosinophil Count 0.16 10^3/uL (0.0-0.7); Absolute Lymphocyte Count 2.81 10^3/uL (1.2-3.4); Absolute Monocyte Count 1.39 10^3/uL (0.1-0.8); Absolute Neutrophil Count 6.11 10^3/uL (1.2-6.7); Basophils % 0.7 %; Eosinophils % 1.5 %; HCT 42.3 % (36.0-46.0); Immature Grans % 0.4 %; Lymphocytes % 26.6 %; MCHC 33.1 % (32.0-36.0); MCV 91 fL (80-95); MPV 9.8 fL (8.0-11.0); Monocytes % 13.1 %; Neutrophils % 57.7 %; Platelet Count 270 10^3/uL (130-400); RBC 4.66 10^6/uL (3.93-5.22); RDW 13.2 % (11.7-14.6); RDW-SD 44.3 fL; WBC 10.58 10^3/uL (4.4-10.8)
[2023-12-27 15:02] LABS: ESR 41 mm/hr (0-30)
[2023-12-27 15:15] LABS: ALT 11 U/L (14-59); AST 15 U/L (15-37); Albumin 2.6 g/dL (3.4-5.0); Alkaline Phosphatase 133 U/L (46-116); Anion Gap 8.8 mmol/L (3-11); BUN 17 mg/dL (7-18); CO2 25.2 mmol/L (21.0-32.0); CREATININE 0.8 mg/dL (0.55-1.02); Calcium 9.4 mg/dL (8.5-10.1); Chloride 105 mmol/L (98-107); Estimated GFR 73.98 (mL/min/1.73m2); Glucose 106 mg/dL (74-106); Magnesium 2.2 mg/dL (1.8-2.4); Sodium 139 mmol/L (136-145); Total Protein 7.2 g/dL (6.4-8.2); Troponin I 8 ng/L (4-51)
[2023-12-27 17:17] LABS: Troponin I 4 ng/L (4-51)
[2023-12-27 17:35] LABS: Bilirubin Negative (Negative); Blood Trace-intact (Negative); Clarity Clear (Clear); Glucose Negative (Negative); Ketones Negative (Negative); Leukocyte Esterase Negative (Negative); Nitrite Negative (Negative); Specific Gravity 1.025 (1.005-1.025); Urobilinogen 0.2 mg/dL (Up to 0.2); pH 5.5 (5-8)
[2023-12-27 17:43] LABS: Bacteria Rare HPF (Negative); C & S Indicated? No; Casts Negative LPF (Negative); Crystals Negative HPF (Negative); Epithelial Cells Rare HPF (Negative); Mucus Negative (Negative)
[2023-12-27] MEDS: Acetaminophen 500 MG TAB 1000 MG PO (19:18)
== END 2023-12-27 19:47 | disposition home or self-care (01) ==
PROVIDERS: Emergency Provider Emergency Medicine; PCP Family Medicine
DX: R41.0 Disorientation, unspecified (principal); M25.532 Pain in left wrist; M25.531 Pain in right wrist; S01.81XD Laceration without foreign body of other part of head, subsequent encounter; S02.2XXD Fracture of nasal bones, subsequent encounter for fracture with routine healing; W19.XXXD Unspecified fall, subsequent encounter
CPT/HCPCS: 36415; 80053; 85652; 93005; 99285; 70450; 73110; 81003; 81015; 83735; 84484; 85025; 86140; 93010; 99284